=== PATIENT | male | born 1965 | race Caucasian/White ===

== ENCOUNTER 2021-09-18 08:50 | Inpatient (IN) | payer OTHER ==
[2021-09-18] MEDS ORDERED: DICYCLOMINE HCL 10 MG CAPSULE PO PRN (10:33)
[2021-09-18] MEDS ORDERED: BISMUTH SUBSALICYLATE 524 MG/30 ML PO PRN (10:33)
[2021-09-18] MEDS ORDERED: MAGNESIUM CITRATE 300 ML BOTTLE PO PRN (10:33)
[2021-09-18] MEDS ORDERED: MAG HYDROX/AL HYDROX/SIMETH 30 ML UNIT-DOSE CUP PO PRN (10:33)
[2021-09-18] MEDS ORDERED: ACETAMINOPHEN 325 MG TABLET (FP) PO PRN ×2 (10:33)
[2021-09-18] MEDS ORDERED: LORazepam 1 MG TABLET PO PRN (10:33)
[2021-09-18] MEDS ORDERED: LOPERAMIDE HCL 2 MG CAPSULE PO PRN (10:33)
[2021-09-18] MEDS ORDERED: BENZOCAINE/MENTHOL (CHLORASEPTIC ) LOZENGE MM PRN (10:33)
[2021-09-18] MEDS ORDERED: IBUPROFEN 400 MG TABLET (FP) PO PRN (10:33)
[2021-09-18] MEDS ORDERED: MAGNESIUM HYDROX 2400MG/30ML ORAL SUSPENSION 30 ML CUP PO PRN (10:33)
[2021-09-18] MEDS ORDERED: ONDANSETRON *ODT* 4 MG TABLET SL PRN (10:33)
[2021-09-18] MEDS ORDERED: NICOTINE 10 MG CARTRIDGE (INHALER) IH PRN (10:33)
[2021-09-18 10:39] VITALS: BMI 38.8
[2021-09-18] MEDS ORDERED: hydrOXYzine PAMOATE 25 MG CAPSULE (FP) PO ONE (11:13)
[2021-09-18] MEDS ORDERED: LORazepam 2 MG TABLET ONE (11:13)
[2021-09-18] MEDS: LORazepam 2 MG TABLET PO SCH ×3 (11:18→22:11)
[2021-09-18] MEDS ORDERED: ONDANSETRON *ODT* 4 MG TABLET ONE (11:27)
[2021-09-18] MEDS ORDERED: IBUPROFEN 400 MG TABLET (FP) PO ONE (11:27)
[2021-09-18] MEDS: NIFEdipine E.R. 30 MG TABLET PO SCH (12:15)
[2021-09-18] MEDS: cloNIDine HCL 0.1 MG TABLET PO SCH (12:15)
[2021-09-18] MEDS: hydrOXYzine PAMOATE 25 MG CAPSULE (FP) PO SCH ×3 (14:32→22:11)
[2021-09-18] MEDS: METHOCARBAMOL 500 MG TABLET PO PRN (17:33)
[2021-09-18] MEDS ORDERED: THIAMINE HCL 100 MG TABLET (FP) PO SCH (22:00)
[2021-09-18] MEDS ORDERED: MELATONIN 5 MG TABLETS PO SCH (22:00)
[2021-09-19] MEDS: LORazepam 2 MG TABLET PO SCH ×2 (05:22→10:44)
[2021-09-19] MEDS: hydrOXYzine PAMOATE 25 MG CAPSULE (FP) PO SCH ×2 (05:23→10:43)
[2021-09-19] MEDS: cloNIDine HCL 0.1 MG TABLET PO SCH (07:28)
[2021-09-19 09:15] VITALS: BP 141/99; PULSE 134; TEMP 97.7
[2021-09-19] MEDS ORDERED: PRENATAL VITAMINS W/ FOLIC ACID TABLET (FP) PO SCH (10:00)
[2021-09-19] MEDS: NIFEdipine E.R. 30 MG TABLET PO SCH (10:43)
[2021-09-19] MEDS: METHOCARBAMOL 500 MG TABLET PO PRN (10:43)
[2021-09-19 12:03] LABS: HEMATOCRIT 41.8 % (35.4-49); HEMOGLOBIN 14.2 GM/dL (11.7-16.9); MCH 28.8 pg (25.7-33.7); MEAN CELL VOLUME 84.7 fl (80-96); MEAN PLT VOLUME 8.9 fl (7.5-11.1); PLATELET COUNT 164 10^3/uL (134-434); RBC 4.93 M/mm3 (4.00-5.60); RDW 14.8 % (11.9-15.9); WHITE BLOOD COUNT 7.3 K/mm3 (4.0-10.0)
[2021-09-19 12:19] LABS: CHLORIDE 88 mmol/L (98-107); SODIUM 134 mmol/L (136-145)
[2021-09-19 12:41] LABS: ALBUMIN 3.6 g/dl (3.4-5.0); BLOOD UREA NITROGEN 16.8 mg/dL (7-18); CALCIUM 7.5 mg/dL (8.5-10.1); CO2 34 mmol/L (21-32); GLUCOSE,RANDOM 106 mg/dL (74-106)
[2021-09-19 12:43] LABS: ALK PHOS 70 U/L (45-117); CREATININE 1.7 mg/dL (0.55-1.3); SGOT/AST 84 U/L (15-37); SGPT/ALT 80 U/L (13-61)
[2021-09-19 12:45] LABS: BILIRUBIN,TOTAL 1.2 mg/dL (0.2-1); TOT PROT 7.4 g/dl (6.4-8.2)
[2021-09-19 13:03] LABS: ANION GAP 12 MMOL/L (8-16)
[2021-09-19 14:54] LABS: EPI CELLS 6 /uL (0-25.1); HYALINE CASTS 1 /uL (0-3.1); URINE APPEARANCE CLEAR; URINE BACTERIA 4 /uL (0-1359); URINE BILIRUBIN NEGATIVE (NEGATIVE); URINE COLOR YELLOW; URINE GLUCOSE (UA) NEGATIVE (NEGATIVE); URINE KETONE NEGATIVE (NEGATIVE); URINE LEUK ESTERASE NEGATIVE (NEGATIVE); URINE NITRITE NEGATIVE (NEGATIVE); URINE PROTEIN 3+ (NEGATIVE); URINE RBC 13 /uL (0-23.9); URINE UROBILINOGEN 0.2 mg/dL (0.2-1.0); URINE WBC 2 /uL (0-25.8)
[2021-09-20] MEDS ORDERED: LORazepam 1 MG TABLET PO SCH (05:00)
[2021-09-20 08:06] LABS: SARS-CoV-2 NAA Not Detected (Not Detected)
[2021-09-21] MEDS ORDERED: LORazepam 0.5 MG TABLET PO PRN
[2021-09-21] MEDS ORDERED: LORazepam 0.5 MG TABLET PO SCH (05:00)
[2021-09-22] MEDS ORDERED: LORazepam 0.5 MG TABLET PO ONE (05:00)
== END 2021-09-19 11:55 | disposition left against medical advice (07) | DRG 770 ==
LOC: YASAS 08:50 → Y3N 10:56
PROVIDERS: ADMIT Allergy & Immunology; ATTEND Allergy & Immunology
PROC: HZ2ZZZZ Detoxification Services for Substance Abuse Treatment (ICD-10-PCS; principal; 2021-09-18)
DX: F10.230 Alcohol dependence with withdrawal, uncomplicated (principal); F10.220 Alcohol dependence with intoxication, uncomplicated; F51.05 Insomnia due to other mental disorder; F41.8 Other specified anxiety disorders; F32.A Depression, unspecified; E87.6 Hypokalemia; I10 Essential (primary) hypertension; R00.0 Tachycardia, unspecified; Z98.890 Other specified postprocedural states
CPT/HCPCS: 36415; 80053; 81003; 85027; 86780; 87811; 93005; 93010; C9803-CS; J0735; Q0162; U0003; U0005

== ENCOUNTER 2023-12-07 01:18 | Inpatient (IN) | payer OTHER ==
[2023-12-07 02:13] VITALS: BMI 40.4
[2023-12-07] MEDS ORDERED: NICOTINE POLACRILEX 4 MG GUM BUC PRN (02:28)
[2023-12-07] MEDS ORDERED: NALOXONE HCL 0.4 MG/ML VIAL IM PRN (02:28)
[2023-12-07] MEDS ORDERED: MAGNESIUM HYDROX 2400MG/30ML ORAL SUSPENSION 30 ML CUP PO PRN (02:28)
[2023-12-07] MEDS ORDERED: IBUPROFEN 400 MG TABLET (FP) PO PRN (02:28)
[2023-12-07] MEDS ORDERED: guaiFENesin 600 MG TABLET.ER (FP) PO PRN (02:28)
[2023-12-07] MEDS ORDERED: BENZONATATE 200 MG CAPSULE PO PRN (02:28)
[2023-12-07] MEDS ORDERED: POLYETHYLENE GLYCOL (HEALTHYLAX) 3350 17 GM PACKET PO PRN (02:28)
[2023-12-07] MEDS ORDERED: LOPERAMIDE HCL 2 MG CAPSULE PO PRN (02:28)
[2023-12-07] MEDS ORDERED: BENZOCAINE/MENTHOL (CHLORASEPTIC ) LOZENGE MM PRN (02:28)
[2023-12-07] MEDS ORDERED: NALOXONE (NARCAN) HCL 4 MG/0.1 ML SPRAY NS PRN (02:28)
[2023-12-07] MEDS ORDERED: ACETAMINOPHEN 325 MG TABLET (FP) ONE ×2 (03:31→09:13)
[2023-12-07] MEDS ORDERED: hydrOXYzine PAMOATE 25 MG CAPSULE (FP) PO ONE (03:31)
[2023-12-07] MEDS ORDERED: chlordiazePOXIDE HCL 25 MG CAPSULE ONE ×2 (03:31→05:55)
[2023-12-07] MEDS: hydrOXYzine PAMOATE 25 MG CAPSULE (FP) PO PRN (03:32)
[2023-12-07] MEDS: ACETAMINOPHEN 325 MG TABLET (FP) PO PRN (03:33)
[2023-12-07] MEDS: chlordiazePOXIDE HCL 25 MG CAPSULE PO SCH (04:06)
[2023-12-07] MEDS: chlordiazePOXIDE HCL 25 MG CAPSULE PO PRN (06:05)
[2023-12-07] MEDS ORDERED: DICYCLOMINE HCL 10 MG CAPSULE ONE (06:43)
[2023-12-07] MEDS: DICYCLOMINE HCL 10 MG CAPSULE PO PRN (06:54)
[2023-12-07] MEDS: FAMOTIDINE 20 MG TABLET PO ONE (06:54)
[2023-12-07] MEDS ORDERED: FUROSEMIDE 20 MG TABLET (FP) PO SCH (10:00)
[2023-12-07] MEDS: NICOTINE 21 MG/24 HOURS TOPICAL PATCH TD SCH (10:30)
[2023-12-07] MEDS ORDERED: PRENATAL VITAMINS W/ FOLIC ACID TABLET (FP) PO ONE (10:31)
[2023-12-07] MEDS: PRENATAL VITAMINS W/ FOLIC ACID TABLET (FP) PO SCH (10:33)
[2023-12-07] MEDS: chlordiazePOXIDE HCL 25 MG CAPSULE PO ONE (13:06)
[2023-12-07] MEDS: FUROSEMIDE 20 MG, FUROSEMIDE 40 MG PO SCH (13:16)
[2023-12-07] MEDS: ONDANSETRON *ODT* 4 MG TABLET SL PRN (13:40)
[2023-12-07] MEDS: CARVEDILOL 6.25 MG TABLET (FP) PO SCH (14:51)
[2023-12-07] MEDS ORDERED: MELATONIN 5 MG TABLETS PO SCH (22:00)
[2023-12-07] MEDS ORDERED: MIRTAZAPINE 15 MG PO SCH (22:00)
[2023-12-07] MEDS: MIRTAZAPINE 15 MG TABLET (FP) PO SCH (22:55)
[2023-12-07] MEDS: THIAMINE 100 MG TABLET PO SCH (22:56)
[2023-12-07] MEDS: MAG HYDROX/AL HYDROX/SIMETH 30 ML UNIT-DOSE CUP PO PRN (23:06)
[2023-12-08] MEDS: BISMUTH SUBSALICYLATE 524 MG/30 ML PO PRN (01:28)
[2023-12-08] MEDS: chlordiazePOXIDE HCL 25 MG CAPSULE PO SCH (06:03)
[2023-12-08] MEDS: IBUPROFEN 600 MG TABLET (FP) PO PRN (10:36)
[2023-12-08] MEDS: DOCUSATE SODIUM 100 MG CAPSULE (FP) PO SCH (22:49)
[2023-12-08] MEDS: diazePAM 5 MG TABLET PO SCH (22:50)
[2023-12-09] MEDS ORDERED: chlordiazePOXIDE HCL 10 MG CAPSULE PO PRN
[2023-12-09] MEDS: diazePAM 5 MG TABLET PO PRN (03:00)
[2023-12-09] MEDS: LACTULOSE 20 GM/30 ML UDC (FOR ORAL USE ONLY) PO ONE (04:14)
[2023-12-09] MEDS ORDERED: chlordiazePOXIDE HCL 10 MG CAPSULE PO SCH (05:00)
[2023-12-09 06:38] VITALS: RESP 18
[2023-12-09 11:13] LABS: HEMATOCRIT 45.5 % (35.4-49); HEMOGLOBIN 15.4 GM/dL (11.7-16.9); MCH 31.5 pg (25.7-33.7); MCHC 33.9 g/dl (32.0-35.9); MEAN CELL VOLUME 93.1 fl (80-96); MEAN PLT VOLUME 10.1 fl (7.5-11.1); PLATELET COUNT 93 10^3/uL (134-434); RBC 4.89 M/mm3 (4.00-5.60); RDW 16.8 % (11.9-15.9); WHITE BLOOD COUNT 19.2 K/mm3 (4.0-10.0)
[2023-12-09 11:23] LABS: CHLORIDE 77 mmol/L (98-107); POTASSIUM 4.5 mmol/L (3.5-5.1); SODIUM 124 mmol/L (136-145)
[2023-12-09 11:25] LABS: CALCIUM 8.2 mg/dL (8.5-10.1)
[2023-12-09 11:26] LABS: ALBUMIN 2.9 g/dl (3.4-5.0); ANION GAP 20 mmol/L (4-13); BLOOD UREA NITROGEN 38.1 mg/dL (7-18); CO2 27 mmol/L (21-32); GLUCOSE,RANDOM 160 mg/dL (74-106)
[2023-12-09 11:28] LABS: SGPT/ALT 292 U/L (13-61)
[2023-12-09 11:29] LABS: CREATININE 5.1 mg/dL (0.55-1.3); SGOT/AST 417 U/L (15-37)
[2023-12-09 11:30] LABS: TOT PROT 7.6 g/dl (6.4-8.2)
[2023-12-09 11:31] LABS: BILIRUBIN,TOTAL 7.1 mg/dL (0.2-1)
[2023-12-09 11:32] LABS: ALK PHOS 232 U/L (45-117)
[2023-12-09 17:33] VITALS: BP 96/52; PULSE 105; TEMP 97.3
[2023-12-10] MEDS ORDERED: chlordiazePOXIDE HCL 10 MG CAPSULE PO SCH (05:00)
[2023-12-10] MEDS ORDERED: diazePAM 5 MG TABLET PO SCH (06:00)
[2023-12-11] MEDS ORDERED: chlordiazePOXIDE HCL 10 MG CAPSULE PO ONE (05:00)
[2023-12-11] MEDS ORDERED: diazePAM 5 MG TABLET PO SCH (06:00)
[2023-12-12] MEDS ORDERED: diazePAM 5 MG TABLET PO ONE (06:00)
== END 2023-12-09 17:59 | disposition short-term general hospital (02) | DRG 775 ==
LOC: YASAS 01:18 → Y6N 09:56
PROVIDERS: ADMIT Allergy & Immunology; ATTEND Surgery
PROC: HZ2ZZZZ Detoxification Services for Substance Abuse Treatment (ICD-10-PCS; principal; 2023-12-07)
DX: F10.230 Alcohol dependence with withdrawal, uncomplicated (principal); F19.24 Other psychoactive substance dependence with psychoactive substance-induced mood disorder; F41.9 Anxiety disorder, unspecified; D72.829 Elevated white blood cell count, unspecified; D69.6 Thrombocytopenia, unspecified; I50.9 Heart failure, unspecified; I11.0 Hypertensive heart disease with heart failure; R44.0 Auditory hallucinations; R44.1 Visual hallucinations; R74.01 Elevation of levels of liver transaminase levels
CPT/HCPCS: 36415; 80053; 80305; 80307; 85027; 86780; 93005; 93010; Q0162

== ENCOUNTER 2023-12-09 18:26 | Inpatient (IN) | payer OTHER ==
[2023-12-09 19:15] LABS: VENOUS BASE EXCESS 9.5 mmol/L (-2-2); VENOUS O2 SATURATION 84.5 % (70-80); VENOUS PCO2 42.3 mmHg (38-52); VENOUS PH 7.516 (7.310-7.410)
[2023-12-09 19:19] LABS: HEMATOCRIT 42.3 % (35.4-49); HEMOGLOBIN 14.6 GM/dL (11.7-16.9); MCH 31.6 pg (25.7-33.7); MCHC 34.4 g/dl (32.0-35.9); MEAN CELL VOLUME 91.8 fl (80-96); MEAN PLT VOLUME 11.6 fl (7.5-11.1); PLATELET COUNT 75 10^3/uL (134-434); RBC 4.61 M/mm3 (4.00-5.60)
[2023-12-09] MEDS ORDERED: diazePAM CARPU-JECT 10 MG/2 ML DISP.SYRIN ONE ×4 (19:25→23:32)
[2023-12-09] MEDS ORDERED: ACETAMINOPHEN INJECTION 100 ML IVPB ONE (19:26)
[2023-12-09 19:27] LABS: INR 1.28 (0.83-1.09); PROTHROMBIN TIME (PATIENT) 14.6 SEC (9.7-13.0)
[2023-12-09 19:29] LABS: ACTIVATED PTT 30.5 SECONDS (25.2-36.5)
[2023-12-09] MEDS: ACETAMINOPHEN 1000 MG/100 ML BAG IVPB ONE (19:35)
[2023-12-09] MEDS: diazePAM CARPU-JECT 10 MG/2 ML DISP.SYRIN IVPUSH ONE ×4 (19:35→23:47)
[2023-12-09] MEDS: SODIUM CHLORIDE 0.9% 500 ML INFUS.BAG IV ONE ×3 (19:35→21:21)
[2023-12-09 19:36] LABS: POTASSIUM 4.9 mmol/L (3.5-5.1)
[2023-12-09 19:38] LABS: CALCIUM 7.9 mg/dL (8.5-10.1)
[2023-12-09 19:39] LABS: ALBUMIN 2.8 g/dl (3.4-5.0); BLOOD UREA NITROGEN 44.6 mg/dL (7-18)
[2023-12-09 19:42] LABS: CREATININE 6.3 mg/dL (0.55-1.3)
[2023-12-09 19:43] LABS: BILIRUBIN,TOTAL 8.4 mg/dL (0.2-1)
[2023-12-09] MEDS ORDERED: VANCOMYCIN 2,000 MG in DEXTROSE 5%-WATER - 500 ML IVPB ONE (20:14)
[2023-12-09 20:23] LABS: LACTIC ACID 4.3 mmol/L (0.4-2.0)
[2023-12-09] MEDS ORDERED: PIPERACILLIN/TAZOB 3.375 GM 3.375 GM/50 ML BAG IVPB ONE (21:00)
[2023-12-09 21:20] LABS: ANISOCYTOSIS 0; MACROCYTOSIS 0; PLATELET ESTIMATE DECREASED
[2023-12-09] MEDS: PIPERACILLIN/TAZOB 3.375 GM 3.375 GM in DEXTROSE 5%-WATER - 50 ML IVPB ONE (21:21)
[2023-12-09 22:37] LABS: VENOUS BASE EXCESS 4.1 mmol/L (-2-2); VENOUS O2 SATURATION 77.9 % (70-80); VENOUS PCO2 52.3 mmHg (38-52); VENOUS PH 7.382 (7.310-7.410)
[2023-12-09 23:00] LABS: CHLORIDE 84 mmol/L (98-107); POTASSIUM 5.7 mmol/L (3.5-5.1); SODIUM 127 mmol/L (136-145)
[2023-12-09 23:01] LABS: ANION GAP 15 mmol/L (4-13); CO2 28 mmol/L (21-32); GLUCOSE,RANDOM 136 mg/dL (74-106); MAGNESIUM 1.7 mg/dL (1.8-2.4)
[2023-12-09 23:02] LABS: BLOOD UREA NITROGEN 44.1 mg/dL (7-18)
[2023-12-09 23:05] LABS: PHOSPHOROUS 3.3 mg/dL (2.5-4.9)
[2023-12-09] MEDS: VANCOMYCIN/WATER 2 GRAMS 2,000 MG/400 ML PIGGYBACK IVPB ONE (23:08)
[2023-12-09 23:14] LABS: CALCIUM 6.5 mg/dL (8.5-10.1); LACTIC ACID 3.8 mmol/L (0.4-2.0)
[2023-12-09 23:29] LABS: EPI CELLS >36 /uL (0-25.1); HYALINE CASTS 1627 /uL (0-3.1); URINE APPEARANCE TURBID; URINE BILIRUBIN NEGATIVE (NEGATIVE); URINE COLOR DK YELLOW; URINE GLUCOSE (UA) NEGATIVE (NEGATIVE); URINE KETONE NEGATIVE (NEGATIVE); URINE LEUK ESTERASE 3+ (NEGATIVE); URINE NITRITE POSITIVE (NEGATIVE); URINE PROTEIN 3+ (NEGATIVE); URINE WBC 23570 /uL (0-25.8)
[2023-12-09 23:34] LABS: URINE BACTERIA 713.4 /uL (0-1359); URINE RBC 193.5 /uL (0-23.9); YEAST NONE SEEN (NEGATIVE)
[2023-12-09] MEDS: DEXMEDETOMIDINE PREMIX 400 MCG/100 ML BAG IVPB SCH (23:47)
[2023-12-10] MEDS: PHENYLEPHRINE NS PREMIX 50,000 MCG/500 ML BAG IVPB SCH (00:51)
[2023-12-10] MEDS: NOREPINEPHRINE BITARTRATE/D5W 8 MG/250 ML BAG IVPB SCH (01:45)
[2023-12-10] MEDS: MUPIROCIN 2% TOPICAL OINTMENT FOR DECOLONIZATION NS SCH (01:54)
[2023-12-10] MEDS: THIAMINE HCL 200 MG/2 ML VIAL IVPB SCH (02:03)
[2023-12-10] MEDS: VASopressin 40 UNITS/100 ML BAG IV SCH (02:03)
[2023-12-10] MEDS: PIPERACILLIN/TAZOB 2.25 GM 2.25 GM in DEXTROSE 5%-WATER - 50 ML IVPB SCH ×2 (02:03→18:37)
[2023-12-10] MEDS: HYDROCORTISONE SOD SUCCINATE 100 MG/2 ML VIAL IVPUSH SCH (02:38)
[2023-12-10 05:51] LABS: ARTERIAL BLD GAS O2 SATURATION 96.8 % (95-98); ARTERIAL BLOOD GAS BASE EXCESS 0 mmol/L (-2-2); ARTERIAL BLOOD GAS PO2 95.7 mmHg (80-100)
[2023-12-10 06:09] LABS: CHLORIDE 92 mmol/L (98-107); POTASSIUM 3.7 mmol/L (3.5-5.1); SODIUM 132 mmol/L (136-145)
[2023-12-10 06:12] LABS: ANION GAP 13 mmol/L (4-13); BLOOD UREA NITROGEN 40.6 mg/dL (7-18); CO2 27 mmol/L (21-32); GLUCOSE,RANDOM 146 mg/dL (74-106); MAGNESIUM 1.5 mg/dL (1.8-2.4)
[2023-12-10 06:15] LABS: CREATININE 5.2 mg/dL (0.55-1.3); PHOSPHOROUS 3.8 mg/dL (2.5-4.9); SGOT/AST 201 U/L (15-37); SGPT/ALT 148 U/L (13-61)
[2023-12-10 06:16] LABS: BILIRUBIN,TOTAL 7.8 mg/dL (0.2-1)
[2023-12-10 06:19] LABS: ALBUMIN 1.9 g/dl (3.4-5.0); ALK PHOS 137 U/L (45-117)
[2023-12-10 06:22] LABS: BASO % 0.3 % (0-2.0); EOS % 0.4 % (0-4.5); HEMATOCRIT 39.6 % (35.4-49); HEMOGLOBIN 13.2 GM/dL (11.7-16.9); LYMPH % 6.2 % (8-40); MCH 31.5 pg (25.7-33.7); MCHC 33.3 g/dl (32.0-35.9); MEAN CELL VOLUME 94.5 fl (80-96); MEAN PLT VOLUME 11.1 fl (7.5-11.1); NEUT % 81.1 % (42.8-82.8); PLATELET COUNT 63 10^3/uL (134-434); RBC 4.19 M/mm3 (4.00-5.60); RDW 16.8 % (11.9-15.9); WHITE BLOOD COUNT 15.5 K/mm3 (4.0-10.0)
[2023-12-10 06:29] LABS: INR 1.31 (0.83-1.09); PROTHROMBIN TIME (PATIENT) 14.9 SEC (9.7-13.0)
[2023-12-10 06:31] LABS: ACTIVATED PTT 33.6 SECONDS (25.2-36.5)
[2023-12-10 07:06] LABS: CALCIUM 5.2 mg/dL (8.5-10.1)
[2023-12-10] MEDS ORDERED: diazePAM CARPU-JECT 10 MG/2 ML DISP.SYRIN IVPUSH SCH (08:15)
[2023-12-10] MEDS ORDERED: CALCIUM GLUCONATE 10% - 1,000 MG/10 ML VIAL IVPB ONE ×2 (08:30→16:45)
[2023-12-10] MEDS: MAGNESIUM 1GM/D5W - 1 GM/100 ML IVPB IVPB ONE (09:00)
[2023-12-10] MEDS: PANTOPRAZOLE SODIUM 40 MG VIAL IVPUSH SCH (09:01)
[2023-12-10 09:04] LABS: BILIRUBIN,DIRECT 6.6 mg/dL (0.0-0.2)
[2023-12-10 09:31] LABS: CHOLESTEROL 105 mg/dL (50-200)
[2023-12-10 09:33] LABS: LDL CHOLESTEROL (ONLY SJRH) 23 mg/dL (5-100)
[2023-12-10 09:34] LABS: HDL CHOLESTEROL 12 mg/dL (40-60)
[2023-12-10] MEDS: CALCIUM GLUCONATE IN NACL 1 GM/50 ML BAG IVPB SCH (11:03)
[2023-12-10] MEDS: POTASSIUM PHOSPHATE 30 MM in DEXTROSE 5%-WATER - 250 ML IVPB ONE (11:04)
[2023-12-10] MEDS ORDERED: LACTATED RINGERS SOLUTION 1,000 ML/1,000 ML INFUS.BAG IV SCH (13:45)
[2023-12-10 14:08] LABS: GAMMA GLUTAMYL TRANSPEPTIDASE 1193 U/L (5-85)
[2023-12-10] MEDS: LACTATED RINGERS SOLUTION 1,000 ML/1,000 ML INFUS.BAG IV SCH (14:49)
[2023-12-10 15:41] LABS: CHLORIDE 82 mmol/L (98-107); POTASSIUM 5.4 mmol/L (3.5-5.1); SODIUM 126 mmol/L (136-145)
[2023-12-10] MEDS: diazePAM CARPU-JECT 10 MG/2 ML DISP.SYRIN IVPUSH SCH (15:42)
[2023-12-10 15:44] LABS: ALBUMIN 2.2 g/dl (3.4-5.0); ANION GAP 16 mmol/L (4-13); BLOOD UREA NITROGEN 47.9 mg/dL (7-18); CO2 28 mmol/L (21-32); GLUCOSE,RANDOM 222 mg/dL (74-106); MAGNESIUM 2.1 mg/dL (1.8-2.4)
[2023-12-10 15:47] LABS: CREATININE 6.3 mg/dL (0.55-1.3); SGOT/AST 219 U/L (15-37); SGPT/ALT 171 U/L (13-61)
[2023-12-10 15:49] LABS: TOT PROT 6.3 g/dl (6.4-8.2)
[2023-12-10 15:50] LABS: ALK PHOS 144 U/L (45-117)
[2023-12-10] MEDS ORDERED: VASopressin 20 UNITS/ML VIAL IV ONE (16:07)
[2023-12-10 16:08] LABS: BILIRUBIN,TOTAL 9.8 mg/dL (0.2-1); CALCIUM 6.1 mg/dL (8.5-10.1)
[2023-12-10] MEDS: CALCIUM GLUCONATE IN NACL 1 GM/50 ML BAG IVPB ONE ×2 (18:33→23:53)
[2023-12-10] MEDS: CHLORHEXIDINE GLUCONATE 4% CLEANSER FOR DECOLONIZATION TP SCH (22:46)
[2023-12-10 22:51] LABS: POTASSIUM 4.8 mmol/L (3.5-5.1)
[2023-12-10 22:53] LABS: BLOOD UREA NITROGEN 48.7 mg/dL (7-18); MAGNESIUM 2.1 mg/dL (1.8-2.4)
[2023-12-10 22:57] LABS: CREATININE 6.1 mg/dL (0.55-1.3); PHOSPHOROUS 7.4 mg/dL (2.5-4.9)
[2023-12-10 23:04] LABS: N-TERMINAL BNP 3751.8 pg/ml (5-125)
[2023-12-10 23:37] LABS: CALCIUM 5.7 mg/dL (8.5-10.1)
[2023-12-10] MEDS: diazePAM CARPU-JECT 10 MG/2 ML DISP.SYRIN IVPUSH PRN (23:40)
[2023-12-11 06:37] LABS: HEMATOCRIT 36.4 % (35.4-49); HEMOGLOBIN 12.3 GM/dL (11.7-16.9); MCHC 33.7 g/dl (32.0-35.9); MEAN CELL VOLUME 94.9 fl (80-96); MEAN PLT VOLUME 10.8 fl (7.5-11.1); PLATELET COUNT 48 10^3/uL (134-434); RBC 3.83 M/mm3 (4.00-5.60); RDW 17.2 % (11.9-15.9); WHITE BLOOD COUNT 9.9 K/mm3 (4.0-10.0)
[2023-12-11 06:48] LABS: CHLORIDE 86 mmol/L (98-107); POTASSIUM 4.3 mmol/L (3.5-5.1); SODIUM 128 mmol/L (136-145)
[2023-12-11 06:51] LABS: ANION GAP 16 mmol/L (4-13); BLOOD UREA NITROGEN 52.4 mg/dL (7-18); CO2 26 mmol/L (21-32); GLUCOSE,RANDOM 246 mg/dL (74-106)
[2023-12-11 06:54] LABS: PHOSPHOROUS 7.4 mg/dL (2.5-4.9); SGOT/AST 168 U/L (15-37); SGPT/ALT 132 U/L (13-61)
[2023-12-11 06:55] LABS: BILIRUBIN,TOTAL 9.3 mg/dL (0.2-1)
[2023-12-11 06:56] LABS: TOT PROT 5.8 g/dl (6.4-8.2)
[2023-12-11 06:57] LABS: ALK PHOS 117 U/L (45-117)
[2023-12-11 07:24] LABS: CALCIUM 5.8 mg/dL (8.5-10.1)
[2023-12-11] MEDS ORDERED: LORazepam 2 MG/ML SDV VIAL IVPUSH PRN (08:27)
[2023-12-11 08:37] LABS: BILIRUBIN,DIRECT 7.9 mg/dL (0.0-0.2)
[2023-12-11 09:12] LABS: ANISOCYTOSIS 0; HELMET CELLS 0; HOWELL-JOLLY BODIES 0; MACROCYTOSIS 0; OVALOCYTE 0; ROULEAU 0; SICKELED CELLS 0; TARGET CELLS 0; TEAR DROP CELLS 0; TOXIC GRANULATION 0
[2023-12-11] MEDS: CALCIUM GLUC IN NACL, ISO-OSM 1 GM/50 ML BAG IVPB ONE (09:14)
[2023-12-11] MEDS: VANCOMYCIN/WATER FOR INJ (PEG) 1,000 MG/200 ML BAG IVPB ONE (11:33)
[2023-12-11] MEDS: CALCIUM ACETATE 667 MG CAPSULE (FP) PO SCH (13:24)
[2023-12-11 14:22] VITALS: BMI 41.6
[2023-12-11] MEDS: INSULIN ASPART SLIDING SCALE (NOVOLOG) 1 VIAL SQ SCH (17:22)
[2023-12-12 07:26] LABS: INR 1.26 (0.83-1.09); PROTHROMBIN TIME (PATIENT) 14.1 SEC (9.7-13.0)
[2023-12-12 07:36] LABS: HEMATOCRIT 31.4 % (35.4-49); HEMOGLOBIN 10.8 GM/dL (11.7-16.9); MCH 32.5 pg (25.7-33.7); MCHC 34.3 g/dl (32.0-35.9); MEAN CELL VOLUME 94.6 fl (80-96); MEAN PLT VOLUME 10.8 fl (7.5-11.1); PLATELET COUNT 38 10^3/uL (134-434); RBC 3.32 M/mm3 (4.00-5.60); WHITE BLOOD COUNT 8.2 K/mm3 (4.0-10.0)
[2023-12-12 07:39] LABS: CHLORIDE 92 mmol/L (98-107); POTASSIUM 3.5 mmol/L (3.5-5.1); SODIUM 134 mmol/L (136-145)
[2023-12-12 07:43] LABS: PHOSPHOROUS 5.6 mg/dL (2.5-4.9); SGPT/ALT 110 U/L (13-61)
[2023-12-12 07:44] LABS: ALBUMIN 1.8 g/dl (3.4-5.0); ANION GAP 12 mmol/L (4-13); BLOOD UREA NITROGEN 59.5 mg/dL (7-18); CO2 30 mmol/L (21-32); GLUCOSE,RANDOM 235 mg/dL (74-106); MAGNESIUM 2.1 mg/dL (1.8-2.4)
[2023-12-12 07:45] LABS: BILIRUBIN,TOTAL 8.2 mg/dL (0.2-1); TOT PROT 5.6 g/dl (6.4-8.2)
[2023-12-12 07:46] LABS: ALK PHOS 101 U/L (45-117)
[2023-12-12 07:47] LABS: SGOT/AST 137 U/L (15-37)
[2023-12-12 08:11] LABS: CALCIUM 5.3 mg/dL (8.5-10.1)
[2023-12-12 09:50] LABS: ANISOCYTOSIS 0; MACROCYTOSIS 0
[2023-12-12 09:54] LABS: PLATELET ESTIMATE DECREASED
[2023-12-12] MEDS: SIMETHICONE 80 MG TAB.CHEW (FP) PO PRN (10:00)
[2023-12-12] MEDS: CALCIUM GLUC IN NACL, ISO-OSM 1 GM/50 ML BAG IVPB ONE (10:02)
[2023-12-12] MEDS: diphenhydrAMINE HCL 25 MG CAPSULE (FP) PO PRN (12:17)
[2023-12-12] MEDS: SEVELAMER CARBONATE 800 MG TAB (FP) PO SCH (17:14)
[2023-12-12] MEDS: HYDROCORTISONE SOD SUCCINATE 100 MG/2 ML VIAL IVPUSH SCH (21:46)
[2023-12-13 07:06] LABS: HEMATOCRIT 33.1 % (35.4-49); HEMOGLOBIN 11.2 GM/dL (11.7-16.9); MCH 32.3 pg (25.7-33.7); MCHC 33.7 g/dl (32.0-35.9); MEAN CELL VOLUME 95.9 fl (80-96); MEAN PLT VOLUME 10.5 fl (7.5-11.1); RBC 3.45 M/mm3 (4.00-5.60); WHITE BLOOD COUNT 6.7 K/mm3 (4.0-10.0)
[2023-12-13 07:10] LABS: INR 1.24 (0.83-1.09); PROTHROMBIN TIME (PATIENT) 14.2 SEC (9.7-13.0)
[2023-12-13 07:20] LABS: CHLORIDE 98 mmol/L (98-107); POTASSIUM 3.1 mmol/L (3.5-5.1); SODIUM 139 mmol/L (136-145)
[2023-12-13 07:25] LABS: ANION GAP 8 mmol/L (4-13); BLOOD UREA NITROGEN 51.6 mg/dL (7-18); CO2 33 mmol/L (21-32); GLUCOSE,RANDOM 244 mg/dL (74-106)
[2023-12-13 07:28] LABS: CREATININE 3.3 mg/dL (0.55-1.3); SGOT/AST 115 U/L (15-37); SGPT/ALT 104 U/L (13-61)
[2023-12-13 07:29] LABS: BILIRUBIN,TOTAL 8.9 mg/dL (0.2-1); TOT PROT 5.9 g/dl (6.4-8.2)
[2023-12-13 07:30] LABS: ALK PHOS 114 U/L (45-117)
[2023-12-13 07:32] LABS: CALCIUM 6.2 mg/dL (8.5-10.1)
[2023-12-13 07:46] LABS: PLATELET COUNT 36 10^3/uL (134-434)
[2023-12-13] MEDS ORDERED: SIMETHICONE 80 MG TAB.CHEW (FP) PO PRN (08:31)
[2023-12-13] MEDS ORDERED: diphenhydrAMINE HCL 25 MG CAPSULE (FP) PO PRN (08:31)
[2023-12-13] MEDS ORDERED: LORazepam 2 MG/ML SDV VIAL IVPUSH PRN (08:31)
[2023-12-13 08:45] LABS: ANISOCYTOSIS 0; HELMET CELLS 0; HOWELL-JOLLY BODIES 0; MACROCYTOSIS 0; OVALOCYTE 0; ROULEAU 0; SICKELED CELLS 0; TARGET CELLS 0; TEAR DROP CELLS 0; TOXIC GRANULATION 0
[2023-12-13] MEDS: LACTATED RINGERS SOLUTION 1,000 ML/1,000 ML INFUS.BAG IV SCH (09:22)
[2023-12-13] MEDS: PANTOPRAZOLE SODIUM 40 MG VIAL IVPUSH SCH (09:22)
[2023-12-13] MEDS ORDERED: MUPIROCIN 2% TOPICAL OINTMENT FOR DECOLONIZATION NS SCH (10:00)
[2023-12-13] MEDS ORDERED: LACTATED RINGERS SOLUTION 1,000 ML/1,000 ML INFUS.BAG IV SCH (10:32)
[2023-12-13] MEDS ORDERED: POTASSIUM CHLORIDE ORAL LIQUID 20 MEQ/15 ML PO ONE (10:45)
[2023-12-13] MEDS ORDERED: CALCIUM GLUCONATE IN NACL 1 GM/50 ML BAG IVPB ONE (10:45)
[2023-12-13] MEDS ORDERED: KCL 10 MEQ IVPB 10 MEQ/100 ML INFUS.BAG IVPB SCH (10:45)
[2023-12-13] MEDS ORDERED: CALCIUM CARBONATE 650 MG TABLET PO SCH (10:45)
[2023-12-13] MEDS ORDERED: INSULIN ASPART SLIDING SCALE (NOVOLOG) 1 VIAL SQ SCH ×2 (11:00→16:30)
[2023-12-13] MEDS ORDERED: CALCIUM ACETATE 667 MG CAPSULE (FP) PO SCH (12:00)
[2023-12-13] MEDS: THIAMINE HCL 200 MG/2 ML VIAL IVPB SCH (12:34)
[2023-12-13] MEDS: VANCOMYCIN PREMIX 1.75 GM 1,750 MG/350 ML PIGGYBACK IVPB SCH (12:34)
[2023-12-13 15:09] VITALS: BP 98/54; PULSE 80; RESP 20; TEMP 98.1
[2023-12-13] MEDS ORDERED: INSULIN (LEVEMIR) 100 UNITS/ML UNITS SQ SCH (22:00)
[2023-12-13] MEDS ORDERED: CARVEDILOL 3.125 MG TABLET (FP) PO SCH (22:00)
[2023-12-13] MEDS ORDERED: CHLORHEXIDINE GLUCONATE 4% CLEANSER FOR DECOLONIZATION TP SCH (22:00)
[2023-12-14] MEDS ORDERED: INSULIN (LEVEMIR) 100 UNITS/ML UNITS SQ SCH (07:00)
[2023-12-14] MEDS ORDERED: THIAMINE HCL 200 MG/2 ML VIAL IVPB SCH (10:00)
== END 2023-12-13 16:20 | disposition left against medical advice (07) | DRG 720 ==
LOC: JER 18:26 → JERBED 22:55 → JICU 12-10 00:46 → J4W 12-12 18:20
PROVIDERS: ADMIT Internal Medicine Pulmonary Disease; ATTEND Internal Medicine
PROC: HZ2ZZZZ Detoxification Services for Substance Abuse Treatment (ICD-10-PCS; principal; 2023-12-09)
PROC: 4A133B1 Monitoring of Arterial Pressure, Peripheral, Percutaneous Approach (ICD-10-PCS; 2023-12-10)
PROC: 4A133J1 Monitoring of Arterial Pulse, Peripheral, Percutaneous Approach (ICD-10-PCS; 2023-12-10)
PROC: 02HV33Z Insertion of Infusion Device into Superior Vena Cava, Percutaneous Approach (ICD-10-PCS; 2023-12-10)
DX: A41.2 Sepsis due to unspecified staphylococcus (principal); R65.21 Severe sepsis with septic shock; D69.6 Thrombocytopenia, unspecified; E87.20 Acidosis, unspecified; F10.231 Alcohol dependence with withdrawal delirium; G92.8 Other toxic encephalopathy; J96.01 Acute respiratory failure with hypoxia; N17.9 Acute kidney failure, unspecified; K85.20 Alcohol induced acute pancreatitis without necrosis or infection; E87.1 Hypo-osmolality and hyponatremia; I13.0 Hypertensive heart and chronic kidney disease with heart failure and stage 1 through stage 4 chronic kidney disease, or unspecified chronic kidney disease; I42.0 Dilated cardiomyopathy; I50.22 Chronic systolic (congestive) heart failure; Z68.41 Body mass index [BMI] 40.0-44.9, adult; K70.10 Alcoholic hepatitis without ascites; N18.9 Chronic kidney disease, unspecified; N39.0 Urinary tract infection, site not specified; R44.1 Visual hallucinations; E83.51 Hypocalcemia; E83.39 Other disorders of phosphorus metabolism; E66.9 Obesity, unspecified
CPT/HCPCS: 0241U-QW; 36415; 36600; 70450-TC; 71045-TC-FY; 73560-TC-RT-FY; 74176-TC; 76700-TC; 80048; 80053; 80061; 81003; 82140; 82248; 82306; 82550; 82553; 82570; 82803; 82962; 82977; 83605; 83690; 83735; 83880; 83935; 83970; 84100; 84300; 84484; 85025; 85610; 85730; 86140; 86704; 86708; 86803; 86850; 86900; 86901; 87040; 87086; 87186; 87340; 87517; 87899; 93005; 93010; 93306-TC; 99291; G0480; J0131; J3490